=== PATIENT | female | born 1950 | race Caucasian/White ===

== ENCOUNTER 2023-07-24 10:34 | Inpatient (IN) | payer MEDICARE ==
[2023-07-24] VITALS (22 sets, daily range): BP systolic 138–156; BP diastolic 84–103; PULSE 106–121; RESP 18–24; TEMP 97.9–98.2; O2SAT 94–99
[~2023-07-24] VITALS: Ht 154.9 cm; Wt 87.6 kg
[2023-07-24] MEDS ORDERED: SODIUM CHLORIDE 0.9% 500ML 500 ML IV ONE (10:45)
[2023-07-24 10:59] LABS: BASOPHILS # (AUTO) 0.1 (0.0-0.1); BASOPHILS % 0.8 % (0.0-1.0); EOSINOPHILS # (AUTO) 0.2 (0.0-0.4); EOSINOPHILS % 2.3 % (0.0-6.0); HEMATOCRIT 31.4 % (34.2-44.1); HEMOGLOBIN 10.1 g/dL (12.0-16.0); LYMPHOCYTES # (AUTO) 0.9 (1.0-3.2); LYMPHOCYTES % 13.3 % (18.0-39.1); MEAN CORPUSCULAR HEMOGLOBIN 28.1 pg (28-32); MEAN CORPUSCULAR HGB CONC 32.2 g/dL (31-35); MEAN CORPUSCULAR VOLUME 87.2 fL (81-99); MONOCYTES # (AUTO) 0.6 (0.2-0.8); MONOCYTES % 8.7 % (4.4-11.3); NEUTROPHILS # (AUTO) 4.9 (2.1-6.9); NEUTROPHILS % 74.6 % (38.7-80.0); PLATELET COUNT 346 x10e3/uL (140-360); RED CELL DISTRIBUTION WIDTH 17.8 % (11.7-14.4); WHITE BLOOD COUNT 6.55 x10e3/uL (4.8-10.8)
[2023-07-24] MEDS ORDERED: METOPROLOL TARTRATE INJ 1 MG/ML VIAL IV ONE (11:00)
[2023-07-24] MEDS ORDERED: AMIODARONE HCL 150 MG/100 ML BAG IV ONE (11:00)
[2023-07-24 11:10] LABS: INR 1.14; PARTIAL THROMBOPLASTIN TIME 30.7 seconds (23.8-35.5); PROTHROMBIN TIME 15.3 seconds (11.9-14.5)
[2023-07-24] MEDS ORDERED: AMIODARONE HCL 100 ML IV ONE (11:15)
[2023-07-24] MEDS ORDERED: AMIODARONE 900MG 500 ML IV SCH ×2 (11:30→17:45)
[2023-07-24] MEDS ORDERED: ONDANSETRON HCL INJ 2MG/ML 2ML 2 MG/ML VIAL IV PRN (11:30)
[2023-07-24 11:50] LABS: ALBUMIN 3.3 g/dL (3.5-5.0); ALBUMIN/GLOBULIN RATIO 0.9 (0.8-2.0); ANION GAP 12.9 mmol/L (8-16); CALCIUM 9.1 mg/dL (8.4-10.2); CREATININE, SERUM 0.88 mg/dL (0.57-1.11); MAGNESIUM 1.8 MG/DL (1.3-2.1); POTASSIUM 3.9 mmol/L (3.5-5.1)
[2023-07-24] MEDS ORDERED: METOPROLOL TARTRATE INJ 1 MG/ML VIAL IV PRN (12:15)
[2023-07-24] MEDS ORDERED: ELIQUIS5 MG PO (14:12)
[2023-07-24] MEDS ORDERED: FUROSEMIDE40 MG PO (14:12)
[2023-07-24] MEDS ORDERED: LABETALOL HCL100 MG PO (14:12)
[2023-07-24] MEDS ORDERED: FLECAINIDE ACE100 MG PO (14:12)
[2023-07-24] MEDS ORDERED: OMEPRAZOLE40 MG PO (14:16)
[2023-07-24] MEDS ORDERED: LOSARTAN POTASS25 MG PO (14:16)
[2023-07-24] MEDS ORDERED: CLONIDINE HCL0.3 MG PO (14:16)
[2023-07-24] MEDS ORDERED: LEVOTHYROXINE75 MCG PO (14:16)
[2023-07-24] MEDS ORDERED: NITROGLYCERIN0.4 MG SL (14:16)
[2023-07-24] MEDS ORDERED: NIFEDIPINE10 MG PO (14:16)
[2023-07-24] MEDS ORDERED: PRAMIPEXOLE DIHY1 MG PO (14:16)
[2023-07-24] MEDS ORDERED: TRIAMCINOLONE A15 G4 TP (14:16)
[2023-07-24] MEDS ORDERED: HYDROCODON-ACE1 EA11 PO (14:16)
[2023-07-24] MEDS: Morphine 2mg Syringe 2 MG/ML SYR IV PRN ×2 (16:33→20:54)
[2023-07-24] MEDS ORDERED: MELATONIN 3 MG TAB PO PRN (21:15)
[2023-07-24] MEDS ORDERED: DOCUSATE SODIUM 100 MG CAP PO PRN (21:15)
[2023-07-24] MEDS ORDERED: ALBUTEROL/IPRATROPIUM 3 ML NEB NEB PRN (21:15)
[2023-07-24] MEDS ORDERED: ACETAMINOPHEN 325 MG TAB PO PRN (21:15)
[2023-07-24] MEDS: METOPROLOL TARTRATE 25 MG TAB PO SCH (22:55)
[2023-07-25] VITALS (46 sets, daily range): BP systolic 47–169; BP diastolic 26–120; PULSE 40–126; RESP 11–24; TEMP 98.3–98.9; O2SAT 95–100
[2023-07-25 00:24] LABS: CREATINE KINASE 43 IU/L (29-168)
[2023-07-25] MEDS ORDERED: METOPROLOL TARTRATE INJ 1 MG/ML VIAL IV ONE (02:15)
[2023-07-25] MEDS: Morphine 2mg Syringe 2 MG/ML SYR IV PRN ×2 (02:24→08:41)
[2023-07-25 05:34] LABS: BASOPHILS # (AUTO) 0.1 (0.0-0.1); BASOPHILS % 0.9 % (0.0-1.0); EOSINOPHILS # (AUTO) 0.2 (0.0-0.4); HEMATOCRIT 32.3 % (34.2-44.1); HEMOGLOBIN 10.4 g/dL (12.0-16.0); LYMPHOCYTES # (AUTO) 0.8 (1.0-3.2); LYMPHOCYTES % 9.4 % (18.0-39.1); MEAN CORPUSCULAR HGB CONC 32.2 g/dL (31-35); MEAN CORPUSCULAR VOLUME 87.1 fL (81-99); MONOCYTES # (AUTO) 0.8 (0.2-0.8); MONOCYTES % 8.7 % (4.4-11.3); NEUTROPHILS % 78.8 % (38.7-80.0); PLATELET COUNT 332 x10e3/uL (140-360); RED BLOOD COUNT 3.71 x10e6/uL (3.6-5.1); RED CELL DISTRIBUTION WIDTH 17.9 % (11.7-14.4); WHITE BLOOD COUNT 8.83 x10e3/uL (4.8-10.8)
[2023-07-25] MEDS: METOPROLOL TARTRATE 25 MG TAB PO SCH (06:00)
[2023-07-25 06:20] LABS: ALBUMIN 3.1 g/dL (3.5-5.0); ALBUMIN/GLOBULIN RATIO 0.9 (0.8-2.0); ANION GAP 12.1 mmol/L (8-16); CALCIUM 8.9 mg/dL (8.4-10.2); CREATININE, SERUM 0.81 mg/dL (0.57-1.11); POTASSIUM 4.1 mmol/L (3.5-5.1)
[2023-07-25 06:35] LABS: CHOL/HDL RATIO 2.6 (3.0-3.6)
[2023-07-25 06:46] LABS: PHOSPHORUS 3.1 MG/DL (2.3-4.7)
[2023-07-25] MEDS ORDERED: LEVOTHYROXINE SODIUM 125 MCG TAB PO SCH (09:00)
[2023-07-25] MEDS ORDERED: BENZOCAINE 20% SPR 60 ML CAN ONE (09:52)
[2023-07-25] MEDS ORDERED: MIDAZOLAM HCL 2 MG/2 ML VIAL ONE (09:52)
[2023-07-25] MEDS ORDERED: FENTANYL CITRATE/PF 100MCG/2 ML INJ ONE (09:52)
[2023-07-25] MEDS ORDERED: SODIUM CHLORIDE 0.9% 500ML 500 ML ONE (09:53)
[2023-07-25] MEDS ORDERED: ENOXAPARIN SODIUM INJ 100 MG/ML SYR SC ONE ×2 (10:25→11:00)
[2023-07-25] MEDS ORDERED: FUROSEMIDE INJ 10 MG/ML 4 ML VIAL IV ONE (11:30)
[2023-07-25] MEDS ORDERED: AMIODARONE HCL 150 MG/100 ML BAG IV ONE (11:45)
[2023-07-25] MEDS ORDERED: HYDROCODONE/APAP 5MG-325MG TAB PO PRN (12:15)
[2023-07-25] MEDS ORDERED: CLONIDINE HCL 0.1 MG TAB PO PRN (12:15)
[2023-07-25] MEDS ORDERED: NITROGLYCERIN 0.4 MG SUBL SL PRN (12:15)
[2023-07-25 12:20] LABS: CLARITY,URINE CLEAR (CLEAR); COLOR,URINE YELLOW (YELLOW); KETONES,URINE NEGATIVE (NEGATIVE); LEUKOCYTE ESTERASE ,URINE NEGATIVE (NEGATIVE); NITRITE,URINE NEGATIVE (NEGATIVE); PROTEIN,URINE DIPSTICK NEGATIVE (NEGATIVE); URINE UROBILINOGEN 0.2 mg/dL (0.2 - 1)
[2023-07-25 12:24] LABS: BACTERIA,URINE FEW /HPF; EPITHELIAL CELLS,URINE FEW /LPF; RBC,URINE 0-5 /HPF (0-5)
[2023-07-25] MEDS: LEVALBUTEROL HCL SOLN NEBU 0.63 MG/3 ML NEB INH PRN ×2 (15:47→22:10)
[2023-07-25] MEDS: NIFEDIPINE CR 30 MG TAB PO SCH ×2 (17:00→18:58)
[2023-07-25] MEDS: APIXABAN 5 MG TABLET PO SCH (18:58)
[2023-07-25] MEDS: LABETALOL HCL 100 MG TAB PO SCH (18:59)
[2023-07-25] MEDS: AMIODARONE HCL 200 MG TAB PO SCH (18:59)
[2023-07-25] MEDS: LOSARTAN POTASSIUM 25 MG TAB PO SCH (19:00)
[2023-07-26] VITALS (8 sets, daily range): BP systolic 121–166; BP diastolic 49–107; PULSE 63–82; RESP 14–23; TEMP 97.9; O2SAT 95–100
[2023-07-26] MEDS: LEVALBUTEROL HCL SOLN NEBU 0.63 MG/3 ML NEB INH PRN (01:26)
[2023-07-26] MEDS ORDERED: GUAIFENESIN/DEXTROMETHORPHAN LIQD 5 ML UDC NG PRN (05:00)
[2023-07-26] MEDS ORDERED: BENZONATATE 100 MG CAP PO PRN (05:00)
[2023-07-26] MEDS ORDERED: LEVOTHYROXINE SODIUM 125 MCG TAB PO SCH (06:00)
[2023-07-26] MEDS ORDERED: PROVENTIL HFA6.7 GM INH (06:33)
[2023-07-26] MEDS ORDERED: AMIODARONE HCL200 MG PO ×2 (06:33→06:36)
[2023-07-26] MEDS ORDERED: ONDANSETRON ODT4 MG PO (06:33)
[2023-07-26] MEDS: NIFEDIPINE CR 30 MG TAB PO SCH (08:27)
[2023-07-26] MEDS: AMIODARONE HCL 200 MG TAB PO SCH (08:28)
[2023-07-26] MEDS: APIXABAN 5 MG TABLET PO SCH (08:28)
[2023-07-26] MEDS: LOSARTAN POTASSIUM 25 MG TAB PO SCH (08:28)
[2023-07-26] MEDS: LABETALOL HCL 100 MG TAB PO SCH (08:29)
[2023-07-26] MEDS ORDERED: FUROSEMIDE 20 MG TAB PO SCH (09:00)
[2023-07-26] MEDS ORDERED: PANTOPRAZOLE SOD 40 MG TABEC PO SCH (09:00)
[2023-07-26] MEDS ORDERED: CARVEDILOL 12.5 MG TAB PO SCH (09:00)
[2023-07-26] MEDS ORDERED: PREDNISONE 20 MG TAB PO SCH (09:00)
[2023-07-26 09:09] LABS: ANION GAP 12.7 mmol/L (8-16); CALCIUM 8.7 mg/dL (8.4-10.2); CREATININE, SERUM 0.94 mg/dL (0.57-1.11); MAGNESIUM 1.9 MG/DL (1.3-2.1); PHOSPHORUS 3.6 MG/DL (2.3-4.7); POTASSIUM 3.7 mmol/L (3.5-5.1)
[2023-07-26] MEDS ORDERED: PRAMIPEXOLE DIHYDROCHLORIDE 1 MG TAB PO SCH (21:00)
[2023-08-02] MEDS ORDERED: AMIODARONE HCL 200 MG TAB PO SCH (09:00)
== END 2023-07-26 09:53 | disposition home or self-care (01) | DRG 308 ==
LOC: ER 10:43 → ERHOLD 11:32 → ICU 12:50
PROVIDERS: ADMIT Internal Medicine; ATTEND Internal Medicine
PROC: B24BZZ4 Ultrasonography of Heart with Aorta, Transesophageal (ICD-10-PCS; principal; 2023-07-25)
DX: I48.0 Paroxysmal atrial fibrillation (principal); I50.31 Acute diastolic (congestive) heart failure; E11.65 Type 2 diabetes mellitus with hyperglycemia; I11.0 Hypertensive heart disease with heart failure; E66.9 Obesity, unspecified; E78.5 Hyperlipidemia, unspecified; D64.9 Anemia, unspecified; Z68.36 Body mass index [BMI] 36.0-36.9, adult; G47.33 Obstructive sleep apnea (adult) (pediatric); G25.81 Restless legs syndrome; K21.9 Gastro-esophageal reflux disease without esophagitis; F17.210 Nicotine dependence, cigarettes, uncomplicated; Z79.01 Long term (current) use of anticoagulants; Z20.822 Contact with and (suspected) exposure to COVID-19
CPT/HCPCS: 36415; 71045; 80048; 80053; 80061; 81001; 82550; 83735; 83880; 84100; 84484; 85025; 85610; 85730; 87086; 92960; 93005; 93306; 93312; 93320; 93325; 93355; 94640; 94799; 99152; 99153; 99284; J1650; J1940; J2250; J2270; J2405; J7040; J7512; U0002